=== PATIENT | male | born 2005 | race Caucasian/White ===

== ENCOUNTER 2024-03-17 20:13 | Emergency (ER) | payer MEDICAID ==
[~2024-03-17] VITALS: Ht 167.6 cm; Wt 54.9 kg
[2024-03-17 20:21] VITALS: BP 123/76; PULSE 80; RESP 18; TEMP 98; O2SAT 100
[2024-03-17 20:38] VITALS: BP 123/76; PULSE 80; RESP 18; TEMP 98
[2024-03-17] MEDS: BACITRACIN OINT 500 UNITS/GM PKT TP ONE (20:40)
[2024-03-17 20:51] VITALS: O2SAT 100
[2024-03-17] MEDS ORDERED: CEPH-588 PO (21:38)
[2024-03-17] MEDS ORDERED: NAPR-337 PO (21:39)
== END 2024-03-17 21:59 | disposition home or self-care (01) ==
LOC: MED 20:13
DX: S50.811A Abrasion of right forearm, initial encounter (principal); S70.211A Abrasion, right hip, initial encounter; S40.211A Abrasion of right shoulder, initial encounter; S00.01XA Abrasion of scalp, initial encounter; S09.90XA Unspecified injury of head, initial encounter; Z79.899 Other long term (current) drug therapy; V87.8XXA Person injured in other specified noncollision transport accidents involving motor vehicle (traffic), initial encounter; Y93.89 Activity, other specified; Y92.89 Other specified places as the place of occurrence of the external cause; Y99.8 Other external cause status
CPT/HCPCS: 70450; 90471; 90715; 99285

== ENCOUNTER 2024-03-21 15:19 | Emergency (ER) | payer MEDICAID, OTHER ==
[~2024-03-21] VITALS: Ht 170.2 cm; Wt 55.3 kg
[~2024-03-21 15:19] MED LIST: CEPH-588 PO; NAPR-337 PO
[2024-03-21 15:32] VITALS: BP 109/60; PULSE 92; RESP 16; TEMP 97.4
[2024-03-21] MEDS ORDERED: BACI-418 TP (16:22)
[2024-03-21] MEDS ORDERED: CEPH-588 PO (16:22)
[2024-03-21] MEDS: BACITRACIN OINT 500 UNITS/GM PKT TP SCH (16:39)
== END 2024-03-21 16:40 | disposition home or self-care (01) ==
LOC: MED 15:19
DX: S50.311A Abrasion of right elbow, initial encounter (principal); S70.211A Abrasion, right hip, initial encounter; S80.811A Abrasion, right lower leg, initial encounter; S00.01XA Abrasion of scalp, initial encounter; S40.211A Abrasion of right shoulder, initial encounter; Z48.00 Encounter for change or removal of nonsurgical wound dressing; R03.0 Elevated blood-pressure reading, without diagnosis of hypertension; Z79.899 Other long term (current) drug therapy; W05.1XXA Fall from non-moving nonmotorized scooter, initial encounter; Y93.89 Activity, other specified; Y92.410 Unspecified street and highway as the place of occurrence of the external cause; Y99.8 Other external cause status
CPT/HCPCS: 99283